=== PATIENT | male | born 1980 ===

== ENCOUNTER 2020-10-03 18:24 | Emergency (ER) | payer SELFPAY ==
[2020-10-03] MEDS ORDERED: MORPHINE 4 MG/1 ML INJ IV ONE (19:15)
[2020-10-03] MEDS ORDERED: ONDANSETRON 4 MG/2 ML INJ IV ONE (19:15)
[2020-10-03 19:48] LABS: Basophils % (Auto) 0.2 % (0.0-1.8); Eosinophils % (Auto) 0.4 % (0.0-4.3); Hematocrit 42.2 % (35.5-45.6); Lymphocytes # (Auto) 1.5 K/mm3 (1.2-5.4); Lymphocytes % (Auto) 14.8 % (13.4-35.0); Mean Corpuscular HGB Conc 36 % (32-34); Mean Corpuscular Volume 90 fl (84-94); Monocytes # (Auto) 0.7 K/mm3 (0.0-0.8); Monocytes % (Auto) 7.2 % (0.0-7.3); Platelet Count 290 K/mm3 (140-440); Red Cell Distribution Width 13.6 % (13.2-15.2)
--- NOTE | 2020-10-03 19:55 | XRay Report ---
RIGHT HAND 3 VIEWS INDICATION: Right hand pain after fall 6 feet. COMPARISON: No relevant prior imaging study available. FINDINGS: No acute, displaced fracture is seen. There is soft tissue swelling greatest in the region of the the hernan eminence. No foreign bodies are seen. On the AP image of the trapezium has an abnormal configuration, this appears normal on the oblique im age. IMPRESSION: 1. No acute fracture. Abnormal position of the trapezium on the AP image, this appears normal on the oblique image. If there is clinical concern for dislocation at the thumb MCP joint, additional views or CT would be useful. Signer Name: Clifford Hicks MD Signed: 10/03/2020 7:51 PM Workstation Name: [id number]
[2020-10-03 20:04] LABS: INR 0.94 (0.87-1.13)
[2020-10-03 20:05] LABS: Partial Thromboplastin Time 29.7 Sec. (24.2-36.6)
[2020-10-03 20:11] LABS: Alanine Aminotransferase 28 units/L (7-56); Blood Urea Nitrogen 13 mg/dL (9-20); Calcium 9.2 mg/dL (8.4-10.2); Hemolysis Index 28
[2020-10-03 20:12] LABS: BUN/Creatinine Ratio 19
--- NOTE | 2020-10-03 20:43 | Emergency Department Report ---
ED Fall HPI - General Chief Complaint: Fall Stated Complaint: HAND INJURY RT/BACK Time Seen by Provider: 10/03/20 19:14 Source: patient Mode of arrival: Ambulatory - History of Present Illness Initial Comments: Patient is a 39-year-old male presents emergency room complaints of a fall off a roof that occurred earlier today. Patient states that he accidentally slipped and fell off. He states that he landed on his right hand and his back. He states that he did hit his head. He is complaining of headache, neck pain, back pain, right hand pain. He has been ambulatory since the incident. He denies any loss of consciousness, vomiting, vision changes, numbness, weakness, bowel or bladder incontinence, any other injury. He denies any chest pain, abdominal pain, shortness of breath. Patient denies any past medical history. No allergies to medications. - Related Data Previous Rx's Medication Instructions Recorded Last Taken Type HYDROcodone/APAP 5-325 [[place] 1 each PO Q6HR PRN #12 tablet 10/03/20 Unknown Rx 5/325] Ibuprofen [Motrin 600 MG tab] 600 mg PO Q8H PRN #20 tablet 10/03/20 Unknown Rx Allergies Allergy/AdvReac Type Severity Reaction Status Date / Time No Known Allergies Allergy Unverified 10/03/20 18:30 ED Review of Systems ROS: Stated complaint: HAND INJURY RT/BACK Other details as noted in HPI Comment: All other systems reviewed and negative ED Past Medical Hx - Past Medical History Previous Medical History?: No - Surgical History Past Surgical History?: No - Medications Home Medications: Home Medications Medication Instructions Recorded Confirmed Last Taken Type HYDROcodone/APAP 5-325 [[place] 1 each PO Q6HR PRN #12 tablet 10/03/20 Unknown Rx 5/325] Ibuprofen [Motrin 600 MG tab] 600 mg PO Q8H PRN #20 tablet 10/03/20 Unknown Rx ED Physical Exam - General Limitations: No Limitations General appearance: alert, in no apparent distress - Head Head exam: Present: atraumatic, normocephalic - Eye Eye exam: Present: normal appearance - ENT ENT exam: Present: mucous membranes moist - Neck Neck exam: Present: normal inspection, tenderness (posterior cervical ttp, no step offs, no deformities ), full ROM - Respiratory Respiratory exam: Present: normal lung sounds bilaterally, other (no ecchymosis, no edema, no crepitus ). Absent: respiratory distress, wheezes, rales, rhonchi, stridor, chest wall tenderness, accessory muscle use, decreased breath sounds, prolonged expiratory - Cardiovascular Cardiovascular Exam: Present: regular rate, normal rhythm, normal heart sounds. Absent: systolic murmur, diastolic murmur, rubs, gallop - Extremities Exam Extremities exam: Present: other (ttp and edema present to the right palmar hand to the distal thumb and region of the thenar emminence, decreased ROM of the thumb secondary to pain and swelling, no ttp to the wrist, other digits, or the rest of the RUE, neurovascularly intact, skin is intact) - Back Exam Back exam: Present: normal inspection, full ROM, paraspinal tenderness (thoracic and lumbar), vertebral tenderness (thoracic and lumbar, no step offs, no deformities ) - Neurological Exam Neurological exam: Present: alert, oriented X3, CN II-XII intact, normal gait. Absent: motor sensory deficit - Psychiatric Psychiatric exam: Present: normal affect, normal mood - Skin Skin exam: Present: warm, dry, intact ED Course Vital Signs 10/03/20 10/03/20 10/03/20 18:31 19:25 19:55 Temperature 99.4 F Pulse Rate 73 Respiratory 17 19 19 Rate Blood Pressure 136/76 [Left] O2 Sat by Pulse 98 Oximetry 10/03/20 22:24 Temperature 98.2 F Pulse Rate 86 Respiratory 16 Rate Blood Pressure 122/69 [Left] O2 Sat by Pulse 100 Oximetry ED Medical Decision Making - Lab Data Result diagrams: 10/03/20 19:39 10/03/20 19:39 Lab Results 10/03/20 10/03/20 10/03/20 Range/Units 19:39 19:39 19:39 WBC 9.8 (4.5-11.0) K/mm3 RBC 4.70 (3.65-5.03) M/mm3 Hgb 15.0 (11.8-15.2) gm/dl Hct 42.2 (35.5-45.6) % MCV 90 (84-94) fl MCH 32 (28-32) pg MCHC 36 H (32-34) % RDW 13.6 (13.2-15.2) % Plt Count 290 (140-440) K/mm3 Lymph % (Auto) 14.8 (13.4-35.0) % [place] % (Auto) 7.2 (0.0-7.3) % Eos % (Auto) 0.4 (0.0-4.3) % Baso % (Auto) 0.2 (0.0-1.8) % Lymph # (Auto) 1.5 (1.2-5.4) K/mm3 [place] # (Auto) 0.7 (0.0-0.8) K/mm3 Eos # (Auto) 0.0 (0.0-0.4) K/mm3 Baso # (Auto) 0.0 (0.0-0.1) K/mm3 Seg Neutrophils % 77.4 H (40.0-70.0) % Seg Neutrophils # 7.6 (1.8-7.7) K/mm3 PT 13.1 (12.2-14.9) Sec. INR 0.94 (0.87-1.13) APTT 29.7 (24.2-36.6) Sec. Sodium 134 L (137-145) mmol/L Potassium 4.1 (3.6-5.0) mmol/L Chloride 98.6 (98-107) mmol/L Carbon Dioxide 23 (22-30) mmol/L Anion Gap 17 mmol/L BUN 13 (9-20) mg/dL Creatinine 0.7 L (0.8-1.3) mg/dL Estimated GFR > 60 ml/min BUN/Creatinine Ratio 19 % Glucose 99 (75-100) mg/dL Calcium 9.2 (8.4-10.2) mg/dL Total Bilirubin 0.50 (0.1-1.2) mg/dL AST 39 (5-40) units/L ALT 28 (7-56) units/L Alkaline Phosphatase 60 (35-129) units/L Total Protein 7.4 (6.3-8.2) g/dL Albumin 5.0 (3.9-5) g/dL Albumin/Globulin Ratio 2.1 % Vital Signs 10/03/20 10/03/20 10/03/20 18:31 19:25 19:55 Temperature 99.4 F Pulse Rate 73 Respiratory 17 19 19 Rate Blood Pressure 136/76 [Left] O2 Sat by Pulse 98 Oximetry 10/03/20 22:24 Temperature 98.2 F Pulse Rate 86 Respiratory 16 Rate Blood Pressure 122/69 [Left] O2 Sat by Pulse 100 Oximetry - Radiology Data Radiology results: report reviewed Ordering Physician: LUX SCHREIBER Date of Service: 10/03/20 Procedure(s): XR hand 3+V RT Accession Number(s): [id number] cc: LUX SCHREIBER Fluoro Time In Minutes: RIGHT HAND 3 VIEWS INDICATION: Right hand pain after fall 6 feet. COMPARISON: No relevant prior imaging study available. FINDINGS: No acute, displaced fracture is seen. There is soft tissue swelling greatest in the region of the thenar eminence. No foreign bodies are seen. On the AP image of the trapezium has an abnormal configuration, this appears normal on the oblique image. IMPRESSION: 1. No acute fracture. Abnormal position of the trapezium on the AP image, this appears normal on the oblique image. If there is clinical concern for dislocation at the thumb MCP joint, additional views or CT would be useful. Signer Name: Clifford Hicks MD Signed: 10/03/2020 7:51 PM Workstation Name: [id number] Transcribed By: CRESCENCIO Dictated By: Clifford Hicks MD Electronically Authenticated By: Clifford Hicks MD Signed Date/Time: 10/03/201950 DD/ 48 TD/TT: Ordering Physician: LUX SCHREIBER Date of Service: 10/03/20 Procedure(s): CT head/brain wo con Accession Number(s): [id number] cc: LUX SCHREIBER CT HEAD WITHOUT CONTRAST INDICATION / CLINICAL INFORMATION: Trauma. Patient fell from a roof top sustaining head injury. TECHNIQUE: All CT scans at this location are performed using CT dose reduction for ALARA by means of automated exposure control. COMPARISON: None available. FINDINGS: HEMORRHAGE: No evidence of intracranial hemorrhage or extra-axial fluid collection. EXTRA-AXIAL SPACES: Cortical sulci, sylvian fissures and basilar cisterns have an unremarkable appearance. VENTRICULAR SYSTEM: The third and lateral ventricles are of normal size and configuration. CEREBRAL PARENCHYMA: No areas of abnormal brain parenchymal attenuation are identified. There is no indication of recent infarction. MIDLINE SHIFT OR HERNIATION: There is no mass effect. CEREBELLUM / BRAINSTEM: Brainstem and cerebellum have an unremarkable appearance. MIDLINE STRUCTURES:No abnormalities of the pituitary gland or pineal region are identified. INTRACRANIAL VESSELS:No abnormalities are identified on this noncontrast head CT. ORBITS: visualized portions of the orbits have an unremarkable appearance. SOFT TISSUES of HEAD: No significant abnormality. CALVARIUM: Evaluation of bone windows reveals no abnormalities. PARANASAL SINUSES / MASTOID AIR CELLS: Visualized portions of the paranasal sinuses are free from inflammatory mucosal disease. Mastoid air cells are normally pneumatized. IMPRESSION: 1. No significant intracranial abnormality. Signer Name: Onofre Rush MD Signed: 10/03/2020 9:09 PM Workstation Name: [id number] Transcribed By: Dictated By: Onofre Rush MD Electronically Authenticated By: Onofre Rush MD Signed Date/Time: 10/03/202108 DD/ 06 TD/TT: Ordering Physician: LUX SCHREIBER Date of Service: 10/03/20 Procedure(s): CT cervical spine wo con Accession Number(s): [id number] cc: LUX SCHREIBER CT CERVICAL SPINE WITHOUT CONTRAST INDICATION / CLINICAL INFORMATION: Trauma. Patient fell from roof sustaining neck injury. Neck pain. TECHNIQUE: Axial CT images were obtained through the cervical spine. Sagittal and coronal reformatted images were produced. All CT scans at this location are performed using CT dose reduction for ALARA by means of automated exposure control. COMPARISON: None available. FINDINGS: ALIGNMENT: Normal alignment is maintained throughout. There is no indication of traumatic subluxation. VERTEBRAE: No indication of fracture or bone destruction. DISC SPACES: Loss of disc height C5-6 and C6-7 levels. DEGENERATIVE CHANGES: Loss of disc height and anterior osteophyte formation are noted at the C5-6 level. In addition uncovertebral arthropathy is present bilaterally. There is moderate bilateral neuroforaminal stenosis at the C6 nerve root level. CRANIOCERVICAL JUNCTION:No significant abnormality. SPINAL CANAL: Central spinal canal is adequately maintained throughout. PARASPINAL SOFT TISSUES: No significant abnormality. LUNG APICES: No significant abnormality of visualized lungs. IMPRESSION: 1. No indication of fracture or traumatic subluxation. Signer Name: Onofre Rush MD Signed: 10/03/2020 9:12 PM Workstation Name: [id number] Transcribed By: Dictated By: Onofre Rush MD Electronically Authenticated By: Onofre Rush MD Signed Date/Time: 10/03/202111 DD/ 08 TD/TT: Ordering Physician: LUX SCHREIBER Date of Service: 10/03/20 Procedure(s): CT abdomen pelvis w con Accession Number(s): [id number] cc: LUX SCHREIBER CT CHEST, ABDOMEN, AND PELVIS WITH IV CONTRAST INDICATION: fall from roof, thoracic and lumbar pain. COMPARISON: None available. TECHNIQUE: All CT scans at this location are performed using CT dose reduction for ALARA by means of automated exposure control. Axial CT images were obtained through the chest, abdomen, and pelvis after IV contrast. FINDINGS: Skeletal System: There is a mildly displaced fracture through the left scapula body. No additional fractures are identified. CHEST: Heart: Normal. Thoracic Aorta: No acute abnormality. Mediastinum Lyly: No significant abnormality. Lungs: No acute air space or interstitial disease. Pleura: No significant pleural effusion. No pneumothorax. Airways: No significant abnormality. Additional Findings: None. ABDOMEN: Liver: No significant abnormality. Gallbladder: No significant abnormality. Bile Ducts: No significant abnormality. Pancreas: No significant abnormality. Spleen: No significant abnormality. Adrenals: No significant abnormality. Right Kidney and Proximal Ureter: No significant abnormality. Left Kidney and Proximal Ureter: No significant abnormality. Stomach and Bowel: No significant abnormality. Lymph Nodes: No significant adenopathy. Aorta: No significant abnormality. IVC: No significant abnormality. Additional Findings: None. PELVIS: Urinary Bladder and Distal Ureters: No significant abnormality. Appendix: No significant abnormality. Colon: No significant abnormality. Free Fluid: None. Lymph Nodes: No significant adenopathy. Additional Findings: None. IMPRESSION: 1. Minimally displaced left scapular body fracture. No other acute traumatic fi ndings in the chest, abdomen, or pelvis. Signer Name: Clifford Hicks MD Signed: 10/03/2020 9:17 PM Workstation Name: [id number] Transcribed By: SW Dictated By: Clifford Hicks MD Electronically Authenticated By: Clifford Hicks MD Signed Date/Time: 10/03/202116 DD/ 10 TD/TT: Ordering Physician: LUX SCHREIBER Date of Service: 10/03/20 Procedure(s): CT upper extrem RT wo con Accession Number(s): [id number] cc: LUX SCHREIBER CT upper extrem RT wo con INDICATION: fall from ladder, right hand pain and swelling. TECHNIQUE: All CT scans at this location are performed using the following dose modulation technique: Automated exposure control. COMPARISON: Radiographs earlier today. FINDINGS: No acute fracture is seen. Alignment is normal. There is no subluxation at the thumb CMC joint. No significant degenerative changes. Soft tissue swelling is noted in the thenar eminence musculature. IMPRESSION: 1. No acute skeletal abnormality. 2. Swelling in the thenar eminence musculature may be due to contusion/hematoma. Signer Name: Clifford Hicks MD Signed: 10/03/2020 9:34 PM Workstation Name: [id number] Transcribed By: CRESCENCIO Dictated By: Clifford Hicks MD Electronically Authenticated By: Clifford Hicks MD Signed Date/Time: 10/03/202133 DD/ 29 TD/TT: - Medical Decision Making Patient is a 39-year-old male presents emergency room complaints of a fall off a roof that occurred earlier today. Patient states that he accidentally slipped and fell off. He states that he landed on his right hand and his back. He states that he did hit his head. He is complaining of headache, neck pain, back pain, right hand pain. He has been ambulatory since the incident. He denies any loss of consciousness, vomiting, vision changes, numbness, weakness, bowel or bladder incontinence, any other injury. He denies any chest pain, abdominal pain, shortness of breath. Patient denies any past medical history. No allergies to medications. Due to patient's mechanism, trauma protocol ordered. Labs are stable. X-ray right hand: 1. No acute fracture. Abnormal position of the trapezium on the AP image, this appears normal on the oblique image. If there is clinical concern for dislocation at the thumb MCP joint, additional views or CT would be useful. CT head: 1. No significant intracranial abnormality. CT cervical spine: 1. No indication of fracture or traumatic subluxation. CT upper extremity: 1. No acute skeletal abnormality. 2. Swelling in the thenar eminence musculature may be due to contusion/hematoma. CT chest, abdomen, pelvis with contrast: 1. Minimally displaced left scapular body fracture. No other acute traumatic findings in the chest, abdomen, or pelvis. Discussed results with Dr. Hardin, ER attending who advised to place patient in sling for scapular fracture and have patient follow-up with outpatient orthopedics. Patient also placed in thumb spica splint due to significant swelling in the thenar eminence. Discussed all results with patient and answer questions. Splint and sling placed by nursing patient remained neurovascularly intact. Patient given prescription for medications. Advised patient Please take medication as prescribed as needed. Do not drive or ope rate machinery while taking severe pain medication. Follow-up with a orthopedic doctor. Follow-up with your primary care doctor. Return to emergency room for new or worsening symptoms. Critical care attestation.: If time is entered above; I have spent that time in minutes in the direct care of this critically ill patient, excluding procedure time. ED Disposition Clinical Impression: Left scapula fracture Qualifiers: Encounter type: initial encounter Scapula location: body Fracture type: closed Fracture alignment: displaced Qualified Code(s): S42.112A - Displaced fracture of body of scapula, left shoulder, initial encounter for closed fracture Injury of right hand Qualifiers: Encounter type: initial encounter Qualified Code(s): S69.91XA - Unspecified injury of right wrist, hand and finger(s), initial encounter Disposition: DC-01 TO HOME OR SELFCARE Is pt being admited?: No Does the pt Need Aspirin: No Condition: Stable Instructions: Scapular Fracture Additional Instructions: Please take medication as prescribed as needed. Do not drive or operate machinery while taking severe pain medication. Follow-up with a orthopedic doctor. Follow-up with your primary care doctor. Return to emergency room for new or worsening symptoms. Prescriptions: Ibuprofen [Motrin 600 MG tab] 600 mg PO Q8H PRN #20 tablet PRN Reason: Pain HYDROcodone/APAP 5-325 [[place] 5/325] 1 each PO Q6HR PRN #12 tablet PRN Reason: Pain , Severe (7-10) Referrals: STERLING GILES MD [Primary Care Provider] - 2-3 Days BALJIT HUDDLESTON MD [Staff Physician] - 2-3 Days Time of Disposition: 21:50 Print Language: PERUVIAN
--- NOTE | 2020-10-03 21:13 | Cat Scan Report ---
CT HEAD WITHOUT CONTRAST INDICATION / CLINICAL INFORMATION: Trauma. Patient fell from a roof top sustaining head injury. TECHNIQUE: All CT scans at this location are performed using CT dose reduction for ALARA by means of automated e xposure control. COMPARISON: None available. FINDINGS: HEMORRHAGE: No evidence of intracranial hemorrhage or extra-axial fluid collection. EXTRA-AXIAL SPACES: Cortical sulci, sylvian fissures and basilar cisterns have an unremarkable appear ance. VENTRICULAR SYSTEM: The third and lateral ventricles are of normal size and configuration. CEREBRAL PARENCHYMA: No areas of abnormal brain parenchymal attenuation are identified. There is no i ndication of recent infarction. MIDLINE SHIFT OR HERNIATION: There is no mass effect. CEREBELLUM / BRAINSTEM: Brainstem and cerebellum have an unremarkable appearance. MIDLINE STRUCTURES:No abnormalities of the pituitary gland or pineal region are identified. INTRACRANIAL VESSELS:No abnormalities are identified on this noncontrast head CT. ORBITS: visualized portions of the orbits have an unremarkable appearance. SOFT TISSUES of HEAD: No significant abnormality. CALVARIUM: Evaluation of bone windows reveals no abnormalities. PARANASAL SINUSES / MASTOID AIR CELLS: Visualized portions of the paranasal sinuses are free from inf lammatory mucosal disease. Mastoid air cells are normally pneumatized. IMPRESSION: 1. No significant intracranial abnormality. Signer Name: Onofre Rush MD Signed: 10/03/2020 9:09 PM Workstation Name: [id number]
--- NOTE | 2020-10-03 21:16 | Cat Scan Report ---
CT CERVICAL SPINE WITHOUT CONTRAST INDICATION / CLINICAL INFORMATION: Trauma. Patient fell from roof sustaining neck injury. Neck pain. TECHNIQUE: Axial CT images were obtained through the cervical spine. Sagittal and coronal reformatted images wer e produced. All CT scans at this location are performed using CT dose reduction for ALARA by means of automated exposure control. COMPARISON: None available. FINDINGS: ALIGNMENT: Normal alignment is maintained throughout. There is no indication of traumatic subluxation . VERTEBRAE: No indication of fracture or bone destruction. DISC SPACES: Loss of disc height C5-6 and C6-7 levels. DEGENERATIVE CHANGES: Loss of disc height and anterior osteophyte formation are noted at the C5-6 lev el. In addition uncovertebral arthropathy is present bilaterally. There is moderate bilateral neurofo raminal stenosis at the C6 nerve root level. CRANIOCERVICAL JUNCTION:No significant abnormality. SPINAL CANAL: Central spinal canal is adequately maintained throughout. PARASPINAL SOFT TISSUES: No significant abnormality. LUNG APICES: No significant abnormality of visualized lungs. IMPRESSION: 1. No indication of fracture or traumatic subluxation. Signer Name: Onofre Rush MD Signed: 10/03/2020 9:12 PM Workstation Name: [id number]
--- NOTE | 2020-10-03 21:22 | Cat Scan Report ---
CT CHEST, ABDOMEN, AND PELVIS WITH IV CONTRAST INDICATION: fall from roof, thoracic and lumbar pain. COMPARISON: None available. TECHNIQUE: All CT scans at this location are performed using CT dose reduction for ALARA by means of automated e xposure control. Axial CT images were obtained through the chest, abdomen, and pelvis after IV contrast. FINDINGS: Skeletal System: There is a mildly displaced fracture through the left scapula body. No additional fr actures are identified. CHEST: Heart: Normal. Thoracic Aorta: No acute abnormality. Mediastinum & Lyly: No significant abnormality. Lungs: No acute air space or interstitial disease. Pleura: No significant pleural effusion. No pneumothorax. Airways: No significant abnormality. Additional Findings: None. ABDOMEN: Liver: No significant abnormality. Gallbladder: No significant abnormality. Bile Ducts: No significant abnormality. Pancreas: No significant abnormality. Spleen: No significant abnormality. Adrenals: No significant abnormality. Right Kidney and Proximal Ureter: No significant abnormality. Left Kidney and Proximal Ureter: No significant abnormality. Stomach and Bowel: No significant abnormality. Lymph Nodes: No significant adenopathy. Aorta: No significant abnormality. IVC: No significant abnormality. Additional Findings: None. PELVIS: Urinary Bladder and Distal Ureters: No significant abnormality. Appendix: No significant abnormality. Colon: No significant abnormality. Free Fluid: None. Lymph Nodes: No significant adenopathy. Additional Findings: None. IMPRESSION: 1. Minimally displaced left scapular body fracture. No other acute traumatic findings in the chest, a bdomen, or pelvis. Signer Name: Clifford Hicks MD Signed: 10/03/2020 9:17 PM Workstation Name: [id number]
--- NOTE | 2020-10-03 21:38 | Cat Scan Report ---
CT upper extrem RT wo con INDICATION: fall from ladder, right hand pain and swelling. TECHNIQUE: All CT scans at this location are performed using the following dose modulation technique: Automated exposure control. COMPARISON: Radiographs earlier today. FINDINGS: No acute fracture is seen. Alignment is normal. There is no subluxation at the thumb CMC joint. No si gnificant degenerative changes. Soft tissue swelling is noted in the thenar eminence musculature. IMPRESSION: 1. No acute skeletal abnormality. 2. Swelling in the thenar eminence musculature may be due to contusion/hematoma. Signer Name: Clifford Hicks MD Signed: 10/03/2020 9:34 PM Workstation Name: [id number]
[2020-10-03 22:26] VITALS: BP 122/69
== END 2020-10-03 22:27 | disposition home or self-care (01) ==
LOC: ED 18:24
DX: S42.112A Displaced fracture of body of scapula, left shoulder, initial encounter for closed fracture (principal); S69.91XA Unspecified injury of right wrist, hand and finger(s), initial encounter; R10.9 Unspecified abdominal pain; R51.9 Headache, unspecified; M54.5 Low back pain; M54.6 Pain in thoracic spine; Z79.899 Other long term (current) drug therapy; W18.39XA Other fall on same level, initial encounter; Y93.89 Activity, other specified; Y92.89 Other specified places as the place of occurrence of the external cause; Y99.8 Other external cause status
CPT/HCPCS: 29125; 36415; 70450; 71260; 72125; 73130; 73200; 74177; 80053; 85025; 85610; 85730; 96374; 96375; 99285; J2270; J2405; Q9967